=== PATIENT | female | born 2000 | race Caucasian/White ===

== ENCOUNTER 2022-05-14 09:54 | Outpatient (CLI) | payer OTHER, SELFPAY ==
[2022-05-14 11:00] LABS: Amphetamine Urine VISTA NEGATIVE (<1000 ng/mL); Barbiturate Urine VISTA NEGATIVE (< 200 ng/mL); Benzodiazepine Urine VISTA NEGATIVE (< 200 ng/mL); Cocaine Urine VISTA NEGATIVE (< 300 ng/mL); Ecstacy Urine VISTA NEGATIVE (< 500 ng/mL); Methadone Urine VISTA NEGATIVE (< 300 ng/mL); PCP Urine VISTA NEGATIVE (< 25 ng/mL); THC Urine VISTA NEGATIVE (< 50 ng/mL); Vista UDS pH Range 6
[2022-05-17 22:06] LABS: Chlamydia By Nucleic Acid AMP Negative (Negative)
[2022-05-17 23:29] LABS: Gonococcus By Nucleic Acid AMP Negative (Negative)
[2022-05-18 17:26] LABS: HPV Reflexed? NOT INDICATED
== END 2022-05-14 23:59 | disposition home or self-care (01) ==
LOC: LABSPEC 09:56
PROVIDERS: Visit Provider Obstetrics & Gynecology
DX: Z34.90 Encounter for supervision of normal pregnancy, unspecified, unspecified trimester (principal)
CPT/HCPCS: 80307; 87086; 87491; 87591; 88175; G0145

== ENCOUNTER → 2022-05-25 | Outpatient (CLI) | payer BC, SELFPAY ==
[2022-05-25 16:04] LABS: Absolute Neutrophil Count 7.1 X10^3/uL (2.0-7.7); Basophil# 0.04 X10^3/uL; Basophil% 0.4 % (0-1); Eosinophils% 1.9 % (0-5); Hematocrit 41.1 % (37-47); Hemoglobin 14.3 g/dL (12.0-15.0); Lymphocyte % 25.9 % (19-41); Mean Corp Hgb Conc 34.8 g/dL (32-36); Mean Corpuscular Hgb 30.6 pg (27.0-32.0); Mean Corpuscular Volume 87.8 fL (81-99); Mean Platelet Vol. 11.9 fl (6.2-12.0); Monocyte# 0.68 X10^3/uL; Monocyte% 6.3 % (0-10); NRBC Flagged by Analyzer 0 % (0-5); Neutrophil # 7.05 X10^3/uL (2.7-7.7); Neutrophil % 65.1 % (47-70); Platelet Count 184 K/mm3 (150-450); RBC Distribution Width CV 13.1 % (11.6-14.6); RBC Distribution Width SD 42.2 fl (35.1-43.9); Red Blood Count 4.68 M/mm3 (4.2-5.4); White Blood Count 10.8 K/mm3 (4.4-11.0)
[2022-05-25 17:01] LABS: NATERA MAILED SPECIMEN
[2022-05-25 17:29] LABS: HIV - WCH Non-Reactive (Nonreactive); Hepatitis B Surface Antigen Non-Reactive (Nonreactive); Hepatitis C Antibody Non-Reactive (Nonreactive); Rubella IgG Reactive (Nonreactive); Syphilis Antibodies Non-reactive
== END | disposition home or self-care (01) ==
LOC: PAVLAB 15:43
PROVIDERS: Referring Provider Obstetrics & Gynecology; Visit Provider Obstetrics & Gynecology
DX: Z34.81 Encounter for supervision of other normal pregnancy, first trimester (principal)
CPT/HCPCS: 36415; 85025; 86703; 86762; 86780; 86803; 86850; 86900; 86901; 87340

== ENCOUNTER → 2022-09-22 | Outpatient (CLI) | payer BC, SELFPAY ==
[2022-09-22 15:22] LABS: Absolute Lymphocyte Count 2.56 X10^3/uL (0.83-4.51); Absolute Neutrophil Count 8.5 X10^3/uL (2.0-7.7); Basophil# 0.02 X10^3/uL; Basophil% 0.2 % (0-1); Eosinophils% 1.7 % (0-5); Hematocrit 38.8 % (37-47); Hemoglobin 12.8 g/dL (12.0-15.0); Lymphocyte # 2.56 X10^3/ul (0.83-4.51); Lymphocyte % 21.3 % (19-41); Mean Corpuscular Hgb 29.8 pg (27.0-32.0); Mean Corpuscular Volume 90.4 fL (81-99); Mean Platelet Vol. 12.3 fl (6.2-12.0); Monocyte# 0.69 X10^3/uL; Monocyte% 5.7 % (0-10); NRBC Flagged by Analyzer 0 % (0-5); Neutrophil # 8.49 X10^3/uL (2.7-7.7); Neutrophil % 70.7 % (47-70); Platelet Count 166 K/mm3 (150-450); Red Blood Count 4.29 M/mm3 (4.2-5.4)
[2022-09-22 16:22] LABS: HIV - WCH Non-Reactive (Nonreactive); Syphilis Antibodies Non-reactive
== END | disposition home or self-care (01) ==
LOC: PAVLAB 14:58
PROVIDERS: Referring Provider Obstetrics & Gynecology; Visit Provider Obstetrics & Gynecology
DX: O09.90 Supervision of high risk pregnancy, unspecified, unspecified trimester (principal)
CPT/HCPCS: 36415; 85025; 86703; 86780

== ENCOUNTER → 2022-11-26 | Outpatient (CLI) | payer BC, SELFPAY | END | disposition home or self-care (01) | PROVIDERS: Visit Provider Registered Nurse | DX: Z34.90 Encounter for supervision of normal pregnancy, unspecified, unspecified trimester (principal) | CPT/HCPCS: 87081 ==

== ENCOUNTER 2022-12-13 13:40 | Inpatient (IN) | payer BC, SELFPAY ==
[2022-12-13] VITALS (11 sets, daily range): BP systolic 114–134; BP diastolic 72–84; PULSE 64–101; TEMP 36.5–37.1; O2SAT 100; BMI 24.9
[2022-12-13] MEDS: Lactated Ringers 1,000 ML 50 ML IV (14:02)
[2022-12-13 14:17] LABS: Absolute Lymphocyte Count 2.42 X10^3/uL (0.83-4.51); Absolute Neutrophil Count 9.2 X10^3/uL (2.0-7.7); Basophil# 0.03 X10^3/uL; Basophil% 0.2 % (0-1); Eosinophils% 0.8 % (0-5); Hematocrit 42.4 % (37-47); Hemoglobin 13.9 g/dL (12.0-15.0); Lymphocyte # 2.42 X10^3/ul (0.83-4.51); Lymphocyte % 19.5 % (19-41); Mean Corp Hgb Conc 32.8 g/dL (32-36); Mean Corpuscular Hgb 28.9 pg (27.0-32.0); Mean Corpuscular Volume 88.1 fL (81-99); Monocyte# 0.56 X10^3/uL; Monocyte% 4.5 % (0-10); NRBC Flagged by Analyzer 0 % (0-5); Neutrophil # 9.24 X10^3/uL (2.7-7.7); Neutrophil % 74.5 % (47-70); Platelet Count 140 K/mm3 (150-450); RBC Distribution Width CV 13.9 % (11.6-14.6); RBC Distribution Width SD 44.3 fl (35.1-43.9); Red Blood Count 4.81 M/mm3 (4.2-5.4); White Blood Count 12.4 K/mm3 (4.4-11.0)
--- NOTE | 2022-12-13 16:06 | HP.PCM.OB_ITS ---
HPI - General General Date of Admission: 12/13/22 HPI Narrative GAYLE NELSON, is a 22 F who presents at 39+2 with contractions that started overnight with worsening intensity. no lof/vb. good fm. Maternal Data Information ARAM Calculator Estimated Delivery Date Method Current WG Current Estimate 12/18/22 LMP (Uncertain) 39w 2d Other Estimates 12/25/22 Ultrasound #1 38w 2d 12/17/22 Ultrasound #2 39w 3d PFSH PFSH Medical History Alcohol use Arnold-Chiari syndrome Back pain H/O depression, currently Heartburn History of stress test Hx of cystic fibrosis Low-lying placenta in second trimester Non-smoker Restless legs Home Medications elexacaftor 100 mg-tezacaf 50mg-ivacaf 75mg(d)/ivacaf 150mg(n) tablets (Trikafta) 2 ea PO DAILY 05/06/22 [History Last Taken 12/13/22 300 mg] hdnlrw-morgmfks-oodlswd 24,000-76,000-120,000 unit capsule,delayed rel (Creon) 1 cap PO 5X/DAY 05/06/22 [History Last Taken 12/13/22 2400] elexacaftor 100 mg-tezacaf 50mg-ivacaf 75mg(d)/ivacaf 150mg(n) tablets (Trikafta) 1 ea PO HS cystic fibrosis 11/10/22 [History Last Taken 12/13/22 150 mg] qvullzzs-ymw-Gd-FA 1 mg tablet 1 tab PO DAILY 11/10/22 [History Last Taken Unknown] Allergy/AdvReac Type Severity Reaction Status Date / Time acetaminophen Allergy Severe Anaphylaxis Verified 12/13/22 14:03 codeine AdvReac Severe skin Verified 12/13/22 14:03 peels vancomycin AdvReac Severe red man Verified 12/13/22 14:03 syndrome no significant family history Surgical History History of sinus surgery Social History adopted: No household members: spouse, family and children number of children: 1 current occupational status: unemployed pets and animals: Yes pets and animals: dog(s) history of recent travel: No sexually active: Yes Smoking Status: Never smoker alcohol intake: former details: rarely social not drinking now substance use type: does not use diet: other well-balanced diet: daily or most days caffeine: Yes Type: tea Number of servings: 1 eating out: 1-3 times/week during the past year weight has: remained stable what type of physical activity do you participate in: walking and weight training frequency: 1-2 times per week duration: 30-45 minutes/day nikko/episcopal: None seatbelt use: always do you feel safe at home: Yes additional social history: Spouse Poppy History 2 Elective abortions Hx Para 1 Spontaneous abortions Hx # Term Pregnancies Ectopic pregnancies Hx # Pregnancies Multiple births # of living children 1 Past Pregnancies Del. Date Name GA/Weeks Outcome Route Bth Weight Gen Labor Lgth Anesthesia Del Locatn Provider FOB Unknown 09/24/20 Chris 40 live - full term 7# Male 21 epidural [place], [place] Dr. Iván Howe Visit Details Expected Delivery Route/Plan Labor Preferences- CB/BF classes: no labor support person: poppy labor intervention preferences: prefers limited intervention pain management options preferred: unmedicated, but open to epidural cut cord/dad catch: yes : yes PP control planned: discussed discussed possible routes of delivery and associated risks: [] special requests: [] Plans Covid status: discussed Flu vaccine: given Tdap vaccine: Rhogam: na LARC form signed: yes movement and labor precautions reviewed. Problem list reviewed and updated with the most current plan of care details and appropriate orders placed. Relevant counseling for the gestational age provided. Continue routine care and follow up unless otherwise noted in visit notes/problem list details OB Flowsheet Initial Weight: Not Recorded Date -?-?-?-?-?-?-?-?-?-?-?-?- EGA Weight BP Urine Prot -?-?-?-?-?-?-?-?-?-?-?-?- Glucose FHR FuHt Pres Dilation -?-?-?-?-?-?-?-?-?-?-?-?- Effaced St Visit Note 05/13/22 -?-?-?-?-?-?-?-?-?-?-?-?- 8w 5d 129 lb 118/70 -?-?-?-?-?-?-?-?-?-?-?-?- 160 -?-?-?-?-?-?-?-?-?-?-?-?- SM- CRL 1.37cm N OT cons with LMP, enlarged yolk sac seen and simple ovarian cyst seen. precautions reviewed 05/25/22 -?-?-?-?-?-?-?-?-?-?-?-?- 10w 3d 131 lb 131 lb 120/80 -?-?-?-?-?-?-?-?-?-?-?-?- 170 -?-?-?-?-?-?-?-?-?-?-?-?- SM- nl IUP seen no abnormalities doingw [facility] SM- CRL now cons with LMP wi ll change aram to be consistent with lmp. nl IUP seen no abnormalities doingw ell 06/23/22 -?-?-?-?-?-?-?-?-?-?-?-?- 14w 4d 131 lb 136/82 Negative -?-?-?-?-?-?-?-?-?-?-?-?- Negative 156 -?-?-?-?-?-?-?-?-?-?-?-?- JV- pt still nee ds to see MFM . order was sent today. no complaints. recommend o2 saturation remain above 96%. pt is not on and sees pulmonology regularly. 07/12/22 -?-?-?-?-?-?-?-?-?-?-?-?- 17w 2d 134 lb 2 oz 130/84 Nega tive -?-?-?-?-?-?-?-?-?-?-?-?- Negative 155 -?-?-?-?-?-?-?-?-?-?-?-?- JV- pt saw mfm. plans are for monthly growth scans. plan to ask anesthesia for consultation in the 3rd trimester due to AC-II malformation 08/12/22 -?-?-?-?-?-?-?-?-?-?-?-?- 21w 5d 139 lb 114/80 -?-?-?-?-?-?-?-?-?-?-?-?- -?-?-?-?-?-?-?-?-?-?-?-?- SM- no vb lof go od fm no regaulr ctx reviewed MFM consult 09/06/22 -?-?-?-?-?-?-?-?-?-?-?-?- 25w 2d 141 lb 2 oz 121/72 Nega tive -?-?-?-?-?-?-?-?-?-?-?-?- Negative 140 25 -?-?-?-?-?-?-?-?-?-?-?-?- SM- no vb lof go od fm n oregualr ctx 09/22/22 -?-?-?-?-?-?-?-?-?-?-?-?- 27w 4d 144 lb 6 oz 127/78 Nega tive -?-?-?-?-?-?-?-?-?-?-?-?- Negative 150 27 -?-?-?-?-?-?-?-?-?-?-?-?- JV- no lof, vagi nal bleeding, or dec fm. did her glucose test at the clinic (normal) it was a 2 hr. needs vdrl, hiv, cbc 10/04/22 -?-?-?-?-?-?-?-?-?-?-?-?- 29w 2d 146 lb 8 oz 139/79 Nega tive -?-?-?-?-?-?-?-?-?-?-?-?- Negative 148 29 -?-?-?-?-?-?-?-?-?-?-?-?- LC- no lof, vb,c tx. good fm.tdap given. larc signed. 10/20/22 -?-?-?-?-?-?-?-?-?-?-?-?- 31w 4d 144 lb 6 oz 120/72 Nega tive -?-?-?-?-?-?-?-?-?-?-?-?- Negative 137 31 -?-?-?-?-?-?-?-?-?-?-?-?- MH-No VB, LOF. G ood FM. Denies concerns 11/05/22 -?-?-?-?-?-?-?-?-?-?-?-?- 33w 6d 146 lb 132/79 -?-?-?-?-?-?-?-?-?-?-?-?- 135 34 -?-?-?-?-?-?-?-?-?-?-?-?- SM- no vb lof go od fm no regular ctx 11/18/22 -?-?-?-?-?-?-?-?-?-?-?-?- 35w 5d 147 lb 122/77 Negative -?-?-?-?-?-?-?-?-?-?-?-?- Negative 144 36 -?-?-?-?-?-?-?-?-?-?-?-?- JV- no lof ,vagi nal bleeding, or dec fm. cleared by anesthesia for epidural. She may not want it though. 11/26/22 -?-?-?-?-?-?-?-?-?-?-?-?- 36w 6d 149 lb 2 oz 126/72 Nega tive -?-?-?-?-?-?-?-?-?-?-?-?- Negative 130 36 1 -?-?-?-?-?-?-?-?-?-?-?-?- 30 -3 LC- no lof /vb/ctx. good fm. gbs obtained. no concerns today 12/03/22 -?-?-?-?-?-?-?-?-?-?-?-?- 37w 6d 149 lb 6 oz 122/82 Nega tive -?-?-?-?-?-?-?-?-?-?-?-?- Negative 142 36 Transverse 1 -?-?-?-?-?-?-?-?-?-?-?-?- 0 -4 JV- head t o maternal right lower quadrant and moves easily with gentle manipulation. will recheck next week for position. no contractions yet. 12/10/22 -?-?-?-?-?-?-?-?-?-?-?-?- 38w 6d 147 lb 4 oz 131/79 Nega tive -?-?-?-?-?-?-?-?-?-?-?-?- Negative 130 36 Cephalic 2 -?-?-?-?-?-?-?-?-?-?-?-?- 70 -2 JV- normal growth scan tuesday. labor precautions discused. JV- normal growth scan . labor precautions discussed. consider 40 week IOL if no delivery for h/o CF 12/13/22 -?-?-?-?-?-?-?-?-?-?-?-?- 39w 2d 145 lb 134/84 -?-?-?-?-?-?-?-?-?-?-?-?- -?-?-?-?-?--?-?-?-?-?-?-?- NST FHR Rate Baby A Baseline: 150 Variability:: Moderate Accelerations:: 15 x 15 Decelerations:: None NST Reactive:: Yes FHR Category:: Category I Uterine Activity:: q5 min ROS Cardiovascular Cardiovascular: Denies chest pain, diaphoresis or dyspnea Genitourinary Genitourinary: Reports change in urinary stream Musculoskeletal Musculoskeletal: Reports none Integumentary Integumentary: Reports none Neurologic Neurologic: Reports none Psychiatric Psychiatric: Reports none Endocrine Endocrinology: Reports none Hematologic/Lymphatic Hematologic/Lymphatic: Reports none Allergic/Immunologic Allergic/Immunologic: Reports none Vital Signs Vital Signs Vital Signs: 12/13/22 13:23 12/13/22 13:23 12/13/22 13:26 Temperature Temperature Source Temporal Pulse Rate 90 Blood Pressure 134/84 H BP Systolic 134 BP Diastolic 84 Pulse Ox 12/13/22 13:26 12/13/22 13:26 Temperature 98.0 F Temperature Source Pulse Rate Blood Pressure BP Systolic BP Diastolic Pulse Ox 100 Weight Weight: 145 lb Body Mass Index (BMI) 24.9 Physical Exam Const alert, oriented x3 and no apparent distress General Appearance: cooperative, comfortable and well kempt Orientation / Consciousness: awake and oriented to person Exam Limitations: no limitations HEENT normocephalic Neck full ROM Chest inspection of chest normal Resp normal respiratory effort, normal air movement and no retractions Effort and Inspection: able to speak in complete sentences and symmetric chest movement Cardio regular rate Peripheral Pulses: pulses 2+ throughout GI normal to inspection, nondistended, normoactive bowel sounds Inspection: gravid no CVA tenderness and appearance of the vagina normal External Female Exam: normal appearance of the urethra; Negative for external lesion OB / External & Speculum: external exam normal Manual OB Exam: estimated gestational size appropriate and presentation cephalic Uterus Palpation: Negative for uterus tender Extremity normal to inspection Skin no rashes or lesions noted Psych Activity / Motor Behavior: appropriate eye contact Speech: normal speech Labs Labs Labs: Blood Type A POSITIVE Antibody Screen NEGATIVE Hct 42.4 % (37-47) Hgb 13.9 g/dL (12.0-15.0) Syphilis Total Ab Non-reactive Rubella IgG Antibody Reactive (Nonreactive) Hep Bs Antigen Non-Reactive (Nonreactive) Chlamydia DNA (ARNAUD) Negative (Negative) Neisseria gonorrhoeae DNA (ARNAUD) Negative (Negative) HIV 1&2 Antibody Non-Reactive (Nonreactive) Assessment & Plan (1) Spontaneous onset of labor: COMMENT: routine admission orders epidural if desires- had anesthesia consult. PLAN: Dr. Moore updated on admission, exam and poc and agrees with midwifery co-management for Chiari malformation (2) : QUALIFIERS: Weeks of gestation: 37 weeks Qualified Code(s): Z3A.37 - 37 weeks gestation of COMMENT: GBS negative. Anatomy normal. Low risk NIPT declined Carrier testing, nl growth EFW 2396gm 37% 38 week ultrasound notes 58% for growth (3) Supervision of high risk , antepartum: COMMENT: PRR ,PRR, ARAM 12/18/21, boy Agus Perez Spouse Poppy (4) Cystic fibrosis: COMMENT: is negative. she has a mild case, diagnosed 6 months of age. MFM consult. last hospital admission sep 2019. takes enzymes. Growth US every 4 weeks.08/17 nl growth (5) Arnold-Chiari malformation, type II: COMMENT: diagnosed as a child, last scan at age 8 and was almost closed. no surgeries in past. will need to consult anesthesia in 3rd trimester to make sure they are comfortable with spinal/epidural anesthesia. pt had epidural with last . anesthesia consult 11/10 @ 1 (6) H/O depression, currently : COMMENT: experienced sadness after of son, untreated reviewed starting zoloft at 36+6 appt, is considering.
[2022-12-13] MEDS: Oxytocin 15 Units/NS 250ml 15 UNITS/250 ML IV.SOLN 2 UNITS IV (22:30)
[2022-12-14] VITALS (44 sets, daily range): BP systolic 101–147; BP diastolic 57–99; PULSE 67–113; RESP 16; TEMP 36.3–37.1; O2SAT 79–100
[2022-12-14] MEDS: Lactated Ringers 1,000 ML 200 ML IV (01:48)
[2022-12-14] MEDS: 0.9% Saline Lock 10 ML Syringe IV ×2 (03:24→03:37)
--- NOTE | 2022-12-14 03:39 | PN.OBGYN_ITS ---
Subjective Subjective contractions with 6.5/10 pain, breathing through contractions, feeling discomfort in back/hips. Objective Data Objective Data Vital Signs: Vital Signs Temp Pulse BP Pulse Ox 98.3 F 82 125/72 H 99 12/14/22 03:13 12/14/22 03:22 12/14/22 03:13 12/14/22 03:22 Weight: 145 lb Body Mass Index (BMI) 24.9 Intake & Output: Intake and Output for Last 24 Hours 12/12/22 12/13/22 12/14/22 23:59 23:59 23:59 Intake Total 74.83 / 77.83 688.93 / 688.93 Balance 74.83 / 77.83 688.93 / 688.93 Lab / Micro Data Attestation: I reviewed the patient's lab results. Result Diagrams: 12/13/22 14:05 Labs: Laboratory Results - last 24 hr 12/13/22 14:05: WBC 12.4 H, RBC 4.81, Hgb 13.9, Hct 42.4, MCV 88.1, MCH 28.9, MCHC 32.8, RDW Std Deviation 44.3 H, RDW Coeff of Marielena 13.9, Plt Count 140 L, MPV 13.0 H, Immature Gran % (Auto) 0.500, Neut % (Auto) 74.5 H, Lymph % (Auto) 19.5, Cherry % (Auto) 4.5, Eos % (Auto) 0.8, Baso % (Auto) 0.2, Absolute Neuts (auto) 9.2 H, Absolute Lymphs (auto) 2.42, Nucleated RBC % 0 12/13/22 14:05: Blood Type A POSITIVE, Antibody Screen NEGATIVE Physical Exam Const alert and oriented x3 Constitutional Narrative: appropriately in discomfort Resp normal respiratory effort, normal air movement and no retractions GI Inspection: gravid Manual OB Exam: dilated 4.5, effaced 60 and station -2 NST FHR Rate Baby A Baseline: 120 Variability:: Moderate Accelerations:: 15 x 15 Decelerations:: None NST Reactive:: Yes FHR Category:: Category I Uterine Activity:: q3 minutes Assessment & Plan (1) Spontaneous onset of labor: COMMENT: -augmented with pitocin for protracted labor. continues at 4- 4.5cm/60. AROM clear fluid at 0300. IUPC placed. PLAN: -continue to increase pitocin for MVU 250 -epidural placement for comfort and pelvic floor relaxation -recheck cervix around 6am unless indicated for sooner. updated and agrees with epidural placement and above plan. (2) : QUALIFIERS: Weeks of gestation: 37 weeks Qualified Code(s): Z3A.37 - 37 weeks gestation of COMMENT: GBS negative. Anatomy normal. Low risk NIPT declined Carrier testing, nl growth EFW 2396gm 37% 38 week ultrasound notes 58% for growth (3) Supervision of high risk , antepartum: COMMENT: PRR ,PRR, ARAM 12/18/21, boy Agus PC Chris Spouse Shyam (4) Arnold-Chiari malformation, type II: COMMENT: diagnosed as a child, last scan at age 8 and was almost closed. no surgeries in past. will need to consult anesthesia in 3rd trimester to make sure they are comfortable with spinal/epidural anesthesia. pt had epidural with last pregn sebas. anesthesia consult 11/10 @ 1
[2022-12-14] MEDS: LACTATED RINGERS 500 ML 999 ML IV (05:48)
[2022-12-14] MEDS: fentaNYL-bupivacaine (epidural) 100 ML BAG EPIDURAL (06:38)
[2022-12-14] MEDS: Oxytocin 10 UNITS/ML Vial IM (07:07)
[2022-12-14] MEDS: Methylergonovine 0.2 MG/ML Ampul IM (07:10)
[2022-12-14] MEDS: Oxytocin 15 Units/NS 250ml 15 UNITS/250 ML IV.SOLN 167 UNITS IV (07:11)
[2022-12-14] MEDS: miSOPROStol 200 MCG Tablet 1000 MCG RC (07:11)
--- NOTE | 2022-12-14 09:53 | OP.PCM_ITS ---
Assessment & Plan (1) Spontaneous onset of labor: COMMENT: -augmented with pitocin for protracted labor. continues at 4- 4.5cm/60. AROM clear fluid at 0300. IUPC placed. (2) Supervision of high risk , antepartum: COMMENT: PRR ,PRR, ARAM 12/18/21, boy Agus Perez Spouse Shyam (3) Cystic fibrosis: COMMENT: is negative. she has a mild case, diagnosed 6 months of age. MFM consult. last hospital admission sep 2019. takes enzymes. Growth US every 4 weeks.08/17 nl growth (4) Arnold-Chiari malformation, type II: COMMENT: diagnosed as a child, last scan at age 8 and was almost closed. no surgeries in past. will need to consult anesthesia in 3rd trimester to make sure they are comfortable with spinal/epidural anesthesia. pt had epidural with last . anesthesia consult 11/10 @ 1 (5) H/O depression, currently : COMMENT: experienced sadness after of son, untreated reviewed starting zoloft at 36+6 appt, is considering. Maternal Data Information ARAM Calculator Estimated Delivery Date Method Current WG Current Estimate 12/18/22 LMP (Uncertain) 39w 3d Other Estimates 12/25/22 Ultrasound #1 38w 3d 12/17/22 Ultrasound #2 39w 4d Final ARAM: 12/18/22 Final ARAM Source: LMP Gestational age: 38 weeks 3 days Vaginal Delivery Operative Information Date of Procedure: 12/14/22 Pre-Operative Diagnosis: @ 38 weeks 3 days, early labor Post-Operative Diagnosis: @ 38 weeks 3 days, early labor Surgery / Procedure Performed: Spontaneous Vaginal Delivery Type of Anesthesia: Epidural Drain: Cespedes to straight drain Estimated Blood Loss: 600cc Findings Description of Procedure: Patient began pushing and delivered the head in the ANGELICA presentation. The head was delivered atraumatically and a loose nuchal cord ?1 was identified and easily reduced over the 's head. The anterior and posterior shoulders delivered without complication followed by the rest of the and the infant was placed on the maternal abdomen. Delayed cord clamping was employed for approximately 60 seconds. Cord was clamped and cut and gentle traction was applied to the cord and the placenta delivered spontaneously immediately following it was noted to be intact with three-vessel cord. The perineum and vagina were inspected and noted to have no laceration. EBL was 600cc, IM and IV pit given, methergine, and 800 mcg vaginal cytotec given along with uterine massage and bleeding stopped. . Patient and infant tolerated delivery well. Presentation: Vertex Amniotic Membrane Rupture Type: Artificial Amniotic Fluid Description: Clear Placental Delivery Description: Spontaneous Placenta Disposition: [facility] Cord Vessel Description: 3 Vessels Cord Entanglement: Around neck x 1, tight Nuchal Cord Compression: Without compression A Gender: Male (1 minute): 9 (5 minute): 9 Delayed Cord Clamping: Yes Post Vaginal Delivery Medications Given After Delivery: IV Pitocin and IM Methergin Episiotomy Description: None Laceration: None Complication Complications: None Multi Select Codes Urinary/Genital Urinary/Genital CPT Codes: 79433 Vaginal Delivery [facility]
[2022-12-14 12:21] LABS: Hematocrit 37.4 % (37-47); Mean Corp Hgb Conc 32.1 g/dL (32-36); Mean Corpuscular Hgb 28.8 pg (27.0-32.0); Mean Corpuscular Volume 89.7 fL (81-99); Mean Platelet Vol. 12.8 fl (6.2-12.0); Platelet Count 142 K/mm3 (150-450); RBC Distribution Width SD 45.3 fl (35.1-43.9); Red Blood Count 4.17 M/mm3 (4.2-5.4); White Blood Count 20.6 K/mm3 (4.4-11.0)
[2022-12-14] MEDS: Senna/Docusate Sodium 1 Tablet PO (16:48)
[2022-12-14] MEDS: Naproxen 500 MG Tablet PO (16:48)
[2022-12-15 05:05] VITALS: BP 117/65; PULSE 73; TEMP 36.7; O2SAT 97
--- NOTE | 2022-12-15 08:09 | PCM.PN.OB ---
Subjective Subjective Patient doing well without complaints. Tolerating PO. Ambulating and voiding without difficulty. Feeding well. Denies chest pain, shortness of breath, calf pain/swelling, fevers, chills, lightheadedness. Objective Data Objective Data Vital Signs: Vital Signs Temp Pulse Resp BP Pulse Ox O2 Del Method 98.0 F 73 16 117/65 97 Room Air 12/15/22 05:05 12/15/22 05:05 12/14/22 23:49 12/15/22 05:05 12/15/22 05:05 12/15/22 05:05 Oxygen Delivery Method Room Air Weight: 145 lb Body Mass Index (BMI) 24.9 Intake & Output: Intake and Output for Last 24 Hours 12/13/22 12/14/22 12/15/22 23:59 23:59 23:59 Intake Total 74.83 / 77.83 2655.17 / 2655.17 Output Total 1400 / 1400 Balance 74.83 / 77.83 1255.17 / 1255.17 Lab / Micro Data Result Diagrams: 12/14/22 12:00 Labs: Laboratory Results - last 24 hr 12/14/22 12:00: WBC 20.6 H, RBC 4.17 L, Hgb 12.0, Hct 37.4, MCV 89.7, MCH 28.8, MCHC 32.1, RDW Std Deviation 45.3 H, RDW Coeff of Marielena 14.0, Plt Count 142 L, MPV 12.8 H Physical Exam Const alert and oriented x3 HEENT normocephalic Eyes PERRL Neck full ROM Resp normal respiratory effort GI soft to palpation GI Narrative: FF below U Assessment & Plan (1) Spontaneous vaginal delivery: COMMENT: TERRA Goldsmith (2) Cystic fibrosis: COMMENT: is negative. she has a mild case, diagnosed 6 months of age. MFM consult. last hospital admission sep 2019. takes enzymes. Growth US every 4 weeks.08/17 nl growth (3) Arnold-Chiari malformation, type II: COMMENT: diagnosed as a child, last scan at age 8 and was almost closed. no surgeries in past. will need to consult anesthesia in 3rd trimester to make sure they are comfortable with spinal/epidural anesthesia. pt had epidural with last . anesthesia consult 11/10 @ 1 (4) H/O depression, currently : COMMENT: experienced sadness after of son, untreated reviewed starting zoloft at 36+6 appt, is considering. PLAN: Plan s/p PPD # 1 1. routine post delivery care 2. breast feeding- support given 3. rh positive 4. rubella immune 5. home today
[2022-12-15 09:16] VITALS: BP 124/72; PULSE 82
[2022-12-15 09:17] VITALS: BP 124/72; PULSE 82; RESP 14; TEMP 36.9; O2SAT 99
--- NOTE | 2022-12-15 10:56 | DCINST_ITS ---
Discharge Instructions Diet Discharge Diet: No restrictions Activity Discharge Activity: May Not Drive and May Shower May resume sexual activity in: 6 weeks Weight Bearing Status: Full weight bearing Dressing / Incision Call your doctor if your incision/area has: Sudden Increased Bleeding, Increased Pain/ Swelling and Foul Smelling Discharge Call your doctor if you observe: Fever of 101 or Higher, Numbness or Tingling, Change in Color, Inability to urinate, Inability to have a bowel movement, Using more than 1 pad per hour, Shortness of breath, Dizziness, Fainting spells, Chest pain, Calf discomfort and Uncontrolled pain Follow Up Care When: 6 weeks , please call office to make an appointment. Congratulations on the of your baby! Test Results: Test results from this visit will be discussed in further detail at your follow- up appointment, if applicable. Discharge Plan Admission Admit Date/Time: 12/13/22 13:40 Attending Provider: Josselyn Vaz Primary Care Provider: Care Physician,Najma Primary Discharge Orders/Prescriptions Prescriptions: No Action Trikafta 100-50-75 mg(d) /150 mg (n) tablets, sequential 2 ea PO DAILY Creon 24,000-76,000 -120,000 unit capsule,delayed release(DR/EC) 1 cap PO 5X/DAY Rx Instructions: administer with meals and/or snacks 1 mg Tablet 1 tab PO DAILY Trikafta 100-50-75 mg(d) /150 mg (n) tablets, sequential 1 ea PO PCHS MDD 150 mg Referrals / Follow Up: Care Physician,No Primary [Primary Care Provider] - Disposition Disposition (needs filled in before D/C Order can be placed): Home, Self Care
[2022-12-15 13:45] VITALS: PULSE 55; O2SAT 100
[2022-12-15 13:46] VITALS: BP 114/61; PULSE 55; RESP 16; TEMP 36.7; O2SAT 100
--- NOTE | 2022-12-15 13:53 | CASEMGMT ---
Social Work Brief Assessment Labor and Delivery Unit Patient Address: [address] [place] [address] Phone number: [phone] Date of Referral/Notification: 12/14/2022 Time of Referral: [id number] Referred By: Dr. Hernandez Date of Intervention: 12/15/2022 Time of Intervention: Approximately [id number] Reason for Referral: Maternal history of depression Informant: Medical record and mother of baby (MOB) Gillianpippa Minor; father of baby (FOB) Shyam Minor present for part of conversation History: PRICE is a 22-year-old female, to the FOB for the last 3 years. Have been together for a total of 4 years. During private conversation with the MOB, MOB denied any type of domestic violence or safety concerns in the relationship with FOB. MOB and FOB now have 2 children together. Minor children include Chris (09/24/2020) and baby boy Agus (12/14/2022). Chris was born at [facility] in [place] while the FOB was in the [employer] [facility]. Family has since moved to [place] where both MOB and FOB are from (FOB from [facility] and MOB from [place]). MOB is currently a [id number] mom and the FOB works outside of the home, reporting employment is consistent. care with Agus started at 8 weeks gestation and regular thereafter. Maternal history of cystic fibrosis and Arnold-Chiari malformation. MOB reports her CF has been well controlled with new medication Trikafta, reporting this medication has been life-changing for the MOB. Per record FOBeth is not a carrier of CF. Agus was born weighing 8 pounds 1 ounce, Apgars 9 and 9. MOB and FOB both deny any type of substance use issues. Social alcohol use prior to . Maternal drug screen negative on 05/14/2022. MOB endorses history of depression after Chris was born. FOB concurs a belief that MOB was dealing with some depression, remembering MOB often laying on the floor and crying. MOB reports she attempted to talk with the OB provider at the time and was told MOB was just dealing with hormones without any further follow-up or intervention by the provider. MOB reports at that point did not ask any further questions and never sought out any further treatment. MOB denies any history of SI and no reported history of HI. MOB does endorse history of anxiety and reports to feel more anxiety than depression. [place] depression screen is a score of 5 at this point. Assessment: Met with MOB and FOB in room, introducing to self and social work role. Spoke with MOB and FOB together and then individually with the MOB for completion of depression screening. Both MOB and FOB engaged in conversation, good eye contact, and appearing comfortable and relaxed with each other. MOB and FOB report to have stable housing, purchasing a home during this . There were some issues initially with the moisture in the basement but FOB reports this has been taking care of. Denies any concerns with utility. Denies food security issues and denied transportation issues. Both parents reportedly drive. Parents report necessary supplies are in place to care for the . FOB will be able to take 2 weeks off of work to help with transition home. FOB's family are the primary support to MOB and FOB. Both MOB and FOB engaged in discussion on mood and anxiety disorders. Reviewed risk factors, importance of seeking out help and support, and that both mothers and fathers are at risk for this. MOB and FOB describes a difficult experience with Chris, lack of support with breast-feeding and MOB feeling that she was doing something wrong that breast-feeding was not working. [place], removed from family, which all could have been contributing factors to depression and anxiety. Discussed treatment options for depression and anxiety. FOB asked if there were some counseling resources the family could be given. This greeting card writer agreed and also explored what MOB's thoughts are on medication. MOB reports would be open to medication but likes to have options. MOB reported to de-stress she does like to take baths. MOB does report to feel connection with the baby and denies any current mood or anxiety distress. There have been no voiced concerns with parent-child interactions or bonding during this hospital stay. MOB and FOB both voiced belief the labor and delivery, as well as the experience this admission have been positive. This greeting card writer provided resource packet for [facility], list of counseling options, and a packet on mood and anxiety disorders. MOB and FOB denied any other concerns with home-going. Declined any referrals such as help me grow and reports to feel are over income for WIC. Supportive listening and encouragement provided. Reinforced that depression is common and not a fault. Also apologized for MOB's reports of limited support from healthcare professionals during her last experience. Plan: MOB and infant will discharge home. Resources for home-going have been provided. MOB is aware and agreeable to speak with support system and healthcare provider should symptoms of depression and/or anxiety arise. No further needs requested or indicated. -ALISSA Jeffers, RETAIL BUSINESS DEVELOPMENT MANAGER *This note was generated with a[employer] software. It may contain incorrect words, spelling, and punctuation that were not noted in review of the chart prior to signing*
== END 2022-12-15 14:00 | disposition home or self-care (01) | DRG 806 ==
LOC: WP 13:43 → WPOUT 12-14 11:31
PROVIDERS: Obstetrics & Gynecology; Admitting Provider Registered Nurse; Referring Provider Obstetrics & Gynecology; Visit Provider Registered Nurse
DX: O69.81X0 Labor and delivery complicated by cord around neck, without compression, not applicable or unspecified (principal); Z37.0 Single live birth; E84.9 Cystic fibrosis, unspecified; Q07.00 Arnold-Chiari syndrome without spina bifida or hydrocephalus; O99.284 Endocrine, nutritional and metabolic diseases complicating childbirth; Z3A.39 39 weeks gestation of pregnancy; O99.892 Other specified diseases and conditions complicating childbirth; Z79.899 Other long term (current) drug therapy
CPT/HCPCS: 59025; 59050; 85025; 85027; 86850; 86900; 86901; 99221; J7120; A4216; G0378

== ENCOUNTER 2024-04-20 04:21 | Emergency (ER) | payer BC, SELFPAY ==
[2024-04-20 04:21] VITALS: BP 142/94; PULSE 82; RESP 18; TEMP 36.7; O2SAT 96; BMI 21.7
--- NOTE | 2024-04-20 04:34 | EX.ED.DYSGE1 ---
HPI History of Present Illness Chief Complaint: Abd Pain Informant: patient Onset/Context/Timing Onset: Days Narrative Narrative: Patient presents secondary to upper abdominal pain. She states she has had pain across her upper abdomen that will occasionally go down to her mid abdomen and wrap around her back to the left. Symptoms have been ongoing for the past week but were much worse tonight and she has been unable to find a position of comfort. She will occasionally have some nausea and vomiting. She has not noted urinary symptoms. She has not noted a specific correlation to eating. No fever or chills. [facility] Medical History Spontaneous vaginal delivery Alcohol use Restless legs Back pain Arnold-Chiari syndrome Hx of cystic fibrosis Heartburn Non-smoker History of stress test Low-lying placenta in second trimester H/O depression, currently Home Medications ?Medication ?Instructions ?Recorded ?Last Taken ?Type elexacaftor 100 mg-tezacaf 2 ea PO DAILY 05/06/22 12/13/22 History 50mg-ivacaf 75mg(d)/ivacaf 300 mg 150mg(n) tablets (Trikafta) gocvhn-eantjjru-jezpteh 1 cap PO 5X/DAY 05/06/22 12/13/22 History 24,000-76,000-120,000 unit 2400 capsule,delayed rel (Creon) elexacaftor 100 mg-tezacaf [address] [facility] cystic fibrosis 11/10/22 12/13/22 History 50mg-ivacaf 75mg(d)/ivacaf 150 mg 150mg(n) tablets (Trikafta) [id number]-FA 1 mg 1 tab PO DAILY 11/10/22 Unknown History tablet ondansetron 4 mg disintegrating 4 mg PO Q8H PRN PRN Nausea #10 tabs 04/20/24 Unknown Rx tablet pantoprazole 40 mg tablet,delayed 40 mg PO DAILY #30 tabs 04/20/24 Unknown Rx release (Protonix) Allergy/AdvReac Type Severity Reaction Status Date / Time acetaminophen Allergy Severe Anaphylaxis Verified 04/20/24 04:26 codeine AdvReac Severe skin Verified 04/20/24 04:26 peels vancomycin AdvReac Severe red man Verified 04/20/24 04:26 syndrome Surgical History History of sinus surgery Social History adopted: No household members: spouse, family and children number of children: 2 current occupational status: unemployed pets and animals: Yes pets and animals: dog(s) history of recent travel: No sexually active: Yes Smoking Status: Never smoker alcohol intake: former details: rarely social not drinking now substance use type: does not use diet: other well-balanced diet: daily or most days caffeine: Yes Type: tea Number of servings: 1 eating out: 1-3 times/week during the past year weight has: remained stable what type of physical activity do you participate in: walking and weight training frequency: 1-2 times per week duration: 30-45 minutes/day nikko/spiritism: None seatbelt use: always do you feel safe at home: Yes additional social history: Spouse Shyam BOJORQUEZ MARYELLEN ED Constitutional Constitutional ED: Denies chills or fever(s) Eyes Eyes: Denies discharge from eye(s) ENT ENT ED: Denies discharge from eye(s), rhinorrhea or sore throat Cardiovascular Cardiovascular: Denies chest pain Respiratory/Chest Respiratory/Chest: Denies cough or dyspnea Gastrointestinal Gastrointestinal: Reports abdominal pain, nausea and vomiting; Denies diarrhea Genitourinary Genitourinary ED: Denies difficulty urinating or dysuria Musculoskeletal Musculoskeletal: Reports back pain; Denies extremity pain Integumentary Denies Abrasions or rash Neurologic Neurologic: Denies headache(s) or weakness Psychiatric Psychiatric: Denies anxiety or depression Allergic/Immunologic Allergic/Immunologic ED: Denies lip swelling or urticaria EXAM Physical Exam Const Vital Signs: 04/20/24 04:21 Temperature 98.0 F Temperature Source Temporal Pulse Rate 82 Respiratory Rate 18 Blood Pressure 142/94 H Blood Pressure Mean 110 Pulse Ox 96 Oxygen Delivery Method Room Air Positive well nourished and well developed General Appearance ED: well developed HEENT Reports moist mucous membranes Eyes EOMs intact bilaterally Chest Wall inspection of chest normal and palpation of chest normal Resp normal respiratory effort and clear to auscultation bilaterally Cardio regular rate and regular rhythm GI GI Narrative: Abdomen soft epigastric tenderness palpation. No guarding or rebound. Active bowel sounds are noted throughout. Extremity normal to inspection Neuro oriented x3 and no sensory deficits noted Motor Exam: strength 5/5 throughout Psych mental status grossly normal Skin no rashes or lesions noted MDM MDM MDM Narrative Medical decision making narrative: IV line established. Patient given Toradol and Zofran along with IV fluids. I will also give her dose of Protonix. Labwork obtained to evaluate for leukocytosis, anemia, and electrolyte derangement. Urinalysis obtained to evaluate for infection/hematuria. History & Record Review Discussion w/independent historian: Patient Lab Data Attestation: I reviewed the patient's lab results. Labs: Laboratory Results - last 24 hr 04/20/24 03:40 WBC 7.1 RBC 5.32 Hgb 15.5 H Hct 47.5 H MCV 89.3 MCH 29.1 MCHC 32.6 RDW Std Deviation 44.0 H RDW Coeff of Marielena 13.4 Plt Count 200 MPV 12.6 H Immature Gran % (Auto) 0.300 Neut % (Auto) 50.8 Lymph % (Auto) 39.1 Mckean % (Auto) 6.3 Eos % (Auto) 3.1 Baso % (Auto) 0.4 Absolute Neuts (auto) 3.6 Absolute Lymphs (auto) 2.78 Nucleated RBC % 0 Sodium 141 Potassium 3.6 Chloride 109 H Carbon Dioxide 25.0 Anion Gap 7 BUN 14 Creatinine 0.84 Estim Creat Clear Calc 88.41 Est GFR (MDRD) Af Amer 106 Est GFR (MDRD) Non-Af 88 BUN/Creatinine Ratio 16.8 Glucose 100 Calcium 9.4 Total Bilirubin 0.80 Direct Bilirubin 0.18 AST 26 ALT 33 Alkaline Phosphatase 196 H Total Protein 8.1 Albumin 4.1 Globulin 4.0 Lipase < 10 L Serum , Qual NEGATIVE Urine Color Yellow Urine Clarity Clear Urine pH 6.0 Ur Specific Joiner 1.020 Urine Protein 15 H Urine Glucose (UA) Normal Urine Ketones Negative Urine Occult Blood Negative Urine Nitrite Negative Urine Bilirubin Negative Urine Urobilinogen Normal Ur Leukocyte Esterase 25 H Urine RBC 0 SEEN Urine WBC 0-5 SEEN Ur Squamous Epith Cells 0-5 SEEN Urine Bacteria RARE Urine Mucus 0 SEEN Treatment and Re-Evaluation :: CBC reveals normal white count at 7.1 with hemoglobin slightly concentrated at 15.5. Chemistry studies are unremarkable with normal potassium at 3.6 and normal renal function. LFTs are significant only for an alk phos of 196. Lipase is normal. test negative. Urinalysis reveals no evidence of infection. On repeat evaluation patient resting comfortably. I think patient's symptoms are most consistent with gastritis. Do not think imaging studies will be beneficial. She does report having increased reflux. Unfortunately, she is been taking ibuprofen to help her pain which may have been exacerbating her symptoms. I will write her prescription for Protonix along with Zofran. She will use Tylenol as needed for pain. She can also use Maalox or Mylanta to help coat her stomach. I will refer her to Dr. Solorio, next on the no doc list to establish primary care. Return instructions provided. Discharge Plan Triage Chief Complaint: Abd Pain ED Provider: Fatou Guerra Dx/Rx/DC Orders Clinical Impression: Gastritis Instructions: ED Gastritis (Adult) Prescriptions: New pantoprazole [Protonix] 40 mg tablet,delayed release (DR/EC) 40 mg PO DAILY Qty: 30 0RF ondansetron 4 mg tablet,disintegrating 4 mg PO Q8H PRN PRN (Reason: Nausea) Qty: 10 0RF No Action Trikafta 100-50-75 mg(d) /150 mg (n) tablets, sequential 2 ea PO DAILY Creon 24,000-76,000 -120,000 unit capsule,delayed release(DR/EC) 1 cap PO 5X/DAY Rx Instructions: administer with meals and/or snacks 1 mg Tablet 1 tab PO DAILY Trikafta 100-50-75 mg(d) /150 mg (n) tablets, sequential 1 ea PO [facility] MDD 150 mg Primary Care Provider: Care Physician,No Primary Referrals: Eloy Solorio MD [Med Staff - Automotive Drivability Technician] - As Needed Care Physician,No Primary [Primary Care Provider] - Print Language: Kazakh Disposition Disposition: Home, Self Care
[2024-04-20 04:44] LABS: Mucous, Urine 0 SEEN /hpf (<or=2+); Red Blood Cells-Urine 0 SEEN /hpf (0-5)
[2024-04-20 04:46] LABS: Absolute Lymphocyte Count 2.78 X10^3/uL (0.83-4.51); Absolute Neutrophil Count 3.6 X10^3/uL (2.0-7.7); Basophil# 0.03 X10^3/uL; Basophil% 0.4 % (0-1); Color, Urine Yellow (Yellow); Eosinophil# 0.22 X10^3/uL; Eosinophils% 3.1 % (0-5); Glucose, Dipstick Normal (Normal); Hematocrit 47.5 % (37-47); Hemoglobin 15.5 g/dL (12.0-15.0); Ketone-Dipstick Negative (Negative); Leukocyte Esterase-Dipstick 25 /ul (Negative); Lymphocyte # 2.78 X10^3/ul (0.83-4.51); Lymphocyte % 39.1 % (19-41); Mean Corp Hgb Conc 32.6 g/dL (32-36); Mean Corpuscular Hgb 29.1 pg (27.0-32.0); Mean Corpuscular Volume 89.3 fL (81-99); Mean Platelet Vol. 12.6 fl (6.2-12.0); Monocyte# 0.45 X10^3/uL; Monocyte% 6.3 % (0-10); NRBC Flagged by Analyzer 0 % (0-5); Neutrophil # 3.61 X10^3/uL (2.7-7.7); Neutrophil % 50.8 % (47-70); Nitrite-Dipstick Negative (Negative); Occult Blood-Urine Negative /ul (Negative); Platelet Count 200 K/mm3 (150-450); Protein-Dipstick 15 mg/dl (Negative); RBC Distribution Width CV 13.4 % (11.6-14.6); Red Blood Count 5.32 M/mm3 (4.2-5.4); Urine Bilirubin Dipstick Negative (Negative); Urine Clarity Clear (Clear); Urine Urobilinogen Normal (Normal); White Blood Count 7.1 K/mm3 (4.4-11.0)
[2024-04-20] MEDS: 0.9% Normal Saline (1000mL) 1,000 ML 150 ML IV (04:46)
[2024-04-20] MEDS: Ondansetron 4 MG/2 ML Vial IV (04:46)
[2024-04-20] MEDS: Ketorolac 15 MG/ML Vial IV (04:46)
[2024-04-20] MEDS: Pantoprazole Sodium 40 MG in 0.9% Normal Saline (100mL MB+) 100 ML 330 MG IV (04:49)
[2024-04-20 04:53] LABS: Bacteria RARE /hpf (None Seen); Squamous Epithelial Cells - UA 0-5 SEEN /hpf (5-10); White Blood Cells 0-5 SEEN /hpf (0-5)
[2024-04-20 04:54] LABS: Internal QC Validated? YES +Cl - CLEAR BKGD; Pregnancy, Serum, hCG Quali. NEGATIVE Negative
[2024-04-20 05:24] LABS: AST(SGOT) 26 U/L (15-37); Alanine Aminotransfer ALT/SGPT 33 U/L (13-56); Albumin, Serum 4.1 g/dL (3.2-5.0); Alkaline Phosphatase 196 U/L (45-117); Anion Gap 7 (5-15); BUN 14 mg/dL (7-18); BUN/Creat Ratio 16.8 RATIO (10-20); Bilirubin, Direct 0.18 mg/dL (0.00-0.30); Calcium,Total 9.4 mg/dL (8.5-10.1); Chloride 109 mmol/L (98-107); Creatinine, Serum 0.84 mg/dL (0.55-1.02); EST Glomerular Filtration Rate 88 mL/min (>60); Est Glom Filt Rate - Afr Amer 106 mL/min (>60); Estimated Creatinine Clearance 88.41 ml/min; Glucose 100 mg/dL (74-106); Lipase < 10 U/L (13-75); Potassium 3.6 mmol/L (3.5-5.1); Protein, Total 8.1 g/dL (6.4-8.2); Sodium Level 141 mmol/L (136-145)
[2024-04-20 05:39] VITALS: BP 106/70; PULSE 67; RESP 16; TEMP 36.8; O2SAT 97
== END 2024-04-20 05:40 | disposition home or self-care (01) ==
PROVIDERS: Emergency Provider Emergency Medicine; Visit Provider Emergency Medicine
DX: K29.70 Gastritis, unspecified, without bleeding (principal)
CPT/HCPCS: 80048; 80076; 81001; 83690; 84703; 85025; 96365; 96375; 99282; J7030; A4216; J2405

== ENCOUNTER → 2025-03-29 | Outpatient (CLI) | payer BC, SELFPAY ==
[2025-04-04 21:07] LABS: HPV APTIMA, High Risk Negative (Negative)
== END | disposition home or self-care (01) ==
LOC: LABSPEC 17:03
PROVIDERS: Referring Provider Nurse Practitioner Family; Visit Provider Nurse Practitioner Family
DX: Z12.4 Encounter for screening for malignant neoplasm of cervix (principal)
CPT/HCPCS: 88175; G0145

== ENCOUNTER → 2025-04-11 | Outpatient (CLI) | payer BC, SELFPAY ==
[2025-04-11 17:45] LABS: hCG Titer Quant., Serum < 1 mIU/mL (<9 non-preg)
== END | disposition home or self-care (01) ==
PROVIDERS: Referring Provider Nurse Practitioner Family; Visit Provider Nurse Practitioner Family
DX: N91.2 Amenorrhea, unspecified (principal)
CPT/HCPCS: 36415; 84702